=== PATIENT | male | born 2000 | race Caucasian/White ===

== ENCOUNTER 2020-06-04 12:37 | Outpatient (CLI) | payer OTHER, SELFPAY ==
--- NOTE | ~2020-06-04 | XR_ITS ---
EXAMINATION: XR shoulder RT min 2V DATE: 06/04/2020 12:49 INDICATION: Right shoulder pain. TECHNIQUE: 4 views of right shoulder were obtained. COMPARISON: None. FINDINGS: Bone alignment is normal. No fracture. Joint spaces are well maintained. IMPRESSION: 1. Normal right shoulder. Reviewed, dictated and finalized at location A. CULTURE EXTENSION SPECIALIST IMPRESSION: 1. Normal right shoulder.
== END 2020-06-04 12:38 | disposition home or self-care (01) ==
LOC: ANHIMG 12:38
PROVIDERS: PCP Nurse Practitioner Family; Visit Provider Nurse Practitioner Family
DX: M25.511 Pain in right shoulder (principal)
CPT/HCPCS: 73030

== ENCOUNTER 2020-11-06 09:45 | Emergency (ER) | payer OTHER, SELFPAY ==
[2020-11-06] VITALS (25 sets, daily range): BP systolic 129–160; BP diastolic 77–99; PULSE 73–103; RESP 11–23; TEMP 36.7; O2SAT 98–100
--- NOTE | ~2020-11-06 | XR_ITS ---
EXAMINATION: XR chest 2V 11/06/2020 10:15 INDICATION: Chest pressure PROCEDURE: 2 view chest COMPARISON: No prior studies for comparison. FINDINGS: The lungs are clear. The cardiomediastinal silhouette is within normal limits. There are no pleural effusions. There is no pneumothorax suspected. IMPRESSION: 1: NO ACUTE CARDIOPULMONARY DISEASE. Reviewed, dictated and finalized at location A.
--- NOTE | 2020-11-06 09:48 | ECG_ITS ---
Measurements Intervals [place] Rate: 102 P: 79 OH: 117 QRS: 79 QRSD: 95 T: 46 QT: 320 QTc: 418 Interpretive Statements SINUS TACHYCARDIA WITH SHORT [place] INTERVAL BORDERLINE ECG Electronically Signed On 11-06-2020 10:43:49 CDT by Matteo Murillo D.O.
[2020-11-06 10:20] LABS: Basophils Absolute Auto 0.1 K/mm3 (0.0-0.1); Basophils Percent Auto 1.2 % (0.2-1.2); Eosinophils Absolute Auto 0.2 K/mm3 (0-0.3); Eosinophils Percent Auto 3.5 % (0-4.4); Hematocrit 45.1 % (42.0-52.0); Hemoglobin 15.7 g/dL (14.0-18.0); Immature Granulocyte Absolute 0.01 K/mm3 (0.00-0.031); Immature Granulocyte Percent A 0.2 % (0-0.5); Lymphocytes Absolute Auto 2.88 K/mm3 (0.9-3.2); Lymphocytes Percent Auto 44.4 % (18.3-44.2); Mean Corpuscular HGB Conc 34.8 g/dl (32-36); Mean Corpuscular Hemoglobin 29.5 pg (26-34); Mean Corpuscular Volume 84.8 fl (80-100); Mean Platelet Volume 10.6 fl (7.4-10.4); Monocytes Absolute Auto 0.5 K/mm3 (0.1-0.6); Monocytes Percent Auto 7.6 % (2.6-8.5); Neutrophils Absolute Auto 2.8 K/mm3 (1.3-6.7); Neutrophils Percent Auto 43.1 % (45.5-73.1); Platelet Count Result 236 k/mm3 (150-375); Red Blood Count 5.32 M/mm3 (4.6-6.20); Red Cell Distribution Width 12.3 % (11.5-14.5); White Blood Count 6.5 K/mm3 (4.5-10.0)
[2020-11-06 10:29] LABS: Anion Gap 12 mmol/L (8-16); Blood Urea Nitrogen 16 mg/dL (9-20); Calcium 10.1 mg/dL (8.4-10.2); Carbon Dioxide 24 mmol/L (22-30); Chloride 104 mmol/L (98-107); Estimated CRCL calculation 95 ml/min; Estimated Glomerular Filt Rate > 60; Glucose 109 mg/dL (75-110); Sodium 140 mmol/L (137-145)
[2020-11-06 10:41] LABS: Troponin I < 0.012 ng/mL (0.000-0.034)
[2020-11-06 10:47] LABS: Prothrombin Time 13.7 Seconds (11.1-14.7)
[2020-11-06 10:48] LABS: Partial Thromboplastin Time 28.6 SECONDS (22.3-36.8)
--- NOTE | 2020-11-06 11:43 | ED.CHESTPAIN ---
HPI - Chest Pain General Chief Complaint: Chest Pain Stated Complaint: fast heart beat, chest pressure Time Seen by Provider: 11/06/20 11:15 Source: patient Mode of arrival: ambulatory Limitations: no limitations History of Present Illness HPI narrative: This is a 19 year old male that presents to the ER for intermittent chest pain x 2 days. Associated with some mild shortness of breath and feelings of heart palpitations. The pain is sharp and lasts only briefly. No known alleviating or exacerbating factors. Denies fever, cough, or lower extremity edema. Related Data Allergies Allergy/AdvReac Type Severity Reaction Status Date / Time ibuprofen Allergy Mild Verified 01/11/19 12:18 Penicillins Allergy Mild Verified 01/11/19 12:18 Review of Systems Review of Systems: Narrative: CONSTITUTIONAL: Denies fever CARDIOVASCULAR: Reports chest pain, palpitations. Denies edema. RESPIRATORY: Reports dyspnea. Denies cough PSYCHIATRIC: Reports anxiety All systems reviewed & are unremarkable except as noted in HPI and below PMFSH Past Medical History Medical History (Updated 11/06/20 @ 15:04 by Irma Sanches PA-C) History of anxiety Social History Social History (Updated 11/06/20 @ 11:46 by Irma Sanches PA-C) Smoking status: Never smoker Exam Narrative: Exam Narrative: GENERAL: Well-appearing, well-nourished, and in no acute distress. HEAD: Normocephalic, atraumatic. EYES: EOMI. ENT: Nares clear, no rhinorrhea or epistaxis. Mucous membranes moist. Oropharynx without tonsillar hypertrophy exudate or other lesions. Bilateral TMs pearly albarran non-bulging NECK: Supple. No adenopathy or masses. No carotid bruits or JVD CHEST: Clear to auscultation. No respiratory distress. No wheezes rales or rhonchi HEART: Regular rate and rhythm. No murmur heard. Normal peripheral pulses. EXTREMITIES: Normal range of motion. No edema. SKIN: Warm, dry, no rash. NEURO: No focal deficits. Alert and oriented x3. PSYCH: Normal mood and affect Course Vital Signs Vital signs: Vital Signs Temperature 98.1 F 11/06/20 09:48 Pulse Rate 103 H 11/06/20 09:48 Respiratory Rate 16 11/06/20 09:48 Blood Pressure 160/89 H 11/06/20 09:48 Pulse Oximetry 100 11/06/20 09:48 Temperature 98.1 F 11/06/20 09:48 Pulse Rate 80 11/06/20 14:16 Respiratory Rate 12 11/06/20 14:16 Blood Pressure 131/77 11/06/20 14:15 Pulse Oximetry 100 11/06/20 14:16 MDM - Chest Pain MDM Narrative Medical decision making narrative: Patient presents to the emergency department for intermittent chest pain and feeling of palpitations. He is afebrile and nontoxic-appearing. Mildly tachycardic upon arrival, this normalized without intervention. Patient is in sinus rhythm. No concerning ST changes on EKG. Monitored while in the ED with continued sinus rhythm throughout stay. CBC and metabolic panel without concerning findings. Baseline and 3-hour troponin are negative. Chest x-ray without acute findings. D-dimer is not elevated. Patient and family updated on case findings. His heart score is a 2. He is stable and felt appropriate for further outpatient evaluation. He is to follow-up with his primary care doctor. He was given warnings to return to the ER Lab Data Attestation: I reviewed the patient's lab results. Result diagrams: 11/06/20 10:11 11/06/20 10:11 Labs: Lab Results 11/06/20 11/06/20 11/06/20 Range/Units 10:11 10:11 10:11 WBC 6.5 (4.5-10.0) K/mm3 RBC 5.32 (4.6-6.20) M/mm3 Hgb 15.7 (14.0-18.0) g/dL Hct 45.1 (42.0-52.0) % MCV 84.8 (80-100) fl MCH 29.5 (26-34) pg MCHC 34.8 (32-36) g/dl RDW 12.3 (11.5-14.5) % Plt Count 236 (150-375) k/mm3 MPV 10.6 H (7.4-10.4) fl Immature Gran % (Auto) 0.2 (0-0.5) % Neut % (Auto) 43.1 L (45.5-73.1) % Lymph % (Auto) 44.4 H (18.3-44.2) % [place] % (Auto) 7.6 (2.6-8.5) % Eos % (Auto) 3.5 (0-
[2020-11-06 13:25] LABS: Troponin I < 0.012 ng/mL (0.000-0.034)
[2020-11-06 13:32] LABS: D Dimer 0.27 ug/mL (<0.48)
== END 2020-11-06 15:30 | disposition home or self-care (01) ==
PROVIDERS: Physician Assistant; Emergency Provider Family Medicine; PCP Nurse Practitioner Family
DX: R07.9 Chest pain, unspecified (principal); R00.0 Tachycardia, unspecified
CPT/HCPCS: 36415; 71046; 80048; 84484; 85025; 85380; 85610; 85730; 93005; 99284

== ENCOUNTER 2020-11-11 13:15 | Outpatient (CLI) | payer OTHER, SELFPAY ==
--- NOTE | ~2020-11-11 | XR_ITS ---
EXAMINATION: XR thoracic spine 3V DATE: 11/11/2020 13:27 INDICATION: Back pain. TECHNIQUE: 3 views of thoracic spine on 4 radiographs were obtained. COMPARISON: None. FINDINGS: There is 3 degrees dextrocurvature of upper thoracic spine. Vertebral body heights and inte rvertebral disc heights are normal. IMPRESSION: 1. No etiology for the patient's symptoms. Reviewed, dictated and finalized at location A.
--- NOTE | ~2020-11-11 | XR_ITS ---
EXAMINATION: XR lumbar spine 2-3V DATE: 11/11/2020 13:27 INDICATION: Back pain. TECHNIQUE: 3 views of lumbar spine were obtained. COMPARISON: None. FINDINGS: Bone alignment is normal. Vertebral body heights and intervertebral disc heights are normal . The facet joints are normal. IMPRESSION: 1. Normal lumbar spine. Reviewed, dictated and finalized at location A. IMPRESSION: 1. Normal lumbar spine.
--- NOTE | ~2020-11-11 | XR_ITS ---
EXAMINATION: XR abdomen obstructive series DATE: 11/11/2020 13:27 INDICATION: Abdominal pain. TECHNIQUE: Upright and supine views of the abdomen on 3 radiographs were obtained. COMPARISON: None. FINDINGS: There are no dilated loops of bowel. There is a small volume of stool in the colon. No free intraperitoneal gas. IMPRESSION: 1. Normal bowel gas pattern. Reviewed, dictated and finalized at location A.
== END 2020-11-11 13:16 | disposition home or self-care (01) ==
LOC: ANHIMG 13:16
PROVIDERS: PCP Family Medicine; Visit Provider Family Medicine
DX: M54.6 Pain in thoracic spine (principal); R10.9 Unspecified abdominal pain
CPT/HCPCS: 72072; 72100; 74019

== ENCOUNTER 2020-12-19 14:13 | Emergency (ER) | payer OTHER, SELFPAY ==
[2020-12-19 14:22] VITALS: BP 133/68; PULSE 85; RESP 18; TEMP 37.2; O2SAT 100
--- NOTE | 2020-12-19 14:29 | ED.GENADULT ---
HPI - General Adult General Chief complaint: Upper Respiratory Infection Stated complaint: Cough,Sore throat Source: patient Mode of arrival: ambulatory Limitations: no limitations History of Present Illness HPI narrative: 20 y/o male. PMHx: Negative. Presents to [facility] today with acute complaints of nasal congestion, intermittent cough, as well as sore throat for the past 72 hours. He is a non-smoker. Denies fever, chills, myalgia. No FOFANA, otalgia. No dysphagia or involuntary drooling. No chest pain, palpitations, dyspnea, edema. No abdominal pain, N/V. Pt denies known ill contacts, but states to work for a [employer] around large employee groups frequently. He is without additional acute complaints of illness upon e . Related Data Home Medications Medication Instructions Recorded Confirmed buspirone 10 mg PO BID 12/19/20 12/19/20 cyclobenzaprine 10 mg PO HS PRN 12/19/20 12/19/20 Allergies Allergy/AdvReac Type Severity Reaction Status Date / Time ibuprofen Allergy Mild Rash Verified 12/19/20 14:43 Penicillins Allergy Mild Rash Verified 12/19/20 14:43 Review of Systems Review of Systems: CONSTITUTIONAL: Denies fever, chills, sweats. EYES: Denies visual changes, redness, discharge. ENT: Positive rhinorrhea, congestion, sore throat. No otalgia. CARDIOVASCULAR: Denies chest pain, palpitations, edema. RESPIRATORY: Denies dyspnea, wheezing. Positive non-productive cough GASTROINTESTINAL: Denies abdominal pain, nausea, vomiting, diarrhea. GENITOURINARY: Denies dysuria, hematuria, abnormal discharge SKIN: Denies rash or itching. MUSCULOSKELETAL: Denies acute back pain, joint pain, or myalgia. NEUROLOGIC: Denies numbness, or focal weakness. PSYCHIATRIC: Denies anxiety or depression. All systems reviewed & are unremarkable except as noted in HPI and below PMFSH Past Medical History Medical History History of anxiety Social History Social History Smoking status: Never smoker Exam Narrative: GENERAL: This is a well-nourished, well-developed patient, in no apparent distress. HEAD: normocephalic, atraumatic. EYES: PERRL. Sclera clear/white. EARS: External ears normal, auditory canals clear and without drainage, TMs normal without perforation. NOSE: External nose normal. Positive Rhinorrhea, no obstruction. THROAT: Mucous membranes moist. Posterior Pharynx is erythematous, w/o obvious exudative changes. NECK: Neck supple, non-tender without lymphadenopathy, masses or thyromegaly. CARDIOVASCULAR: Regular rate and rhythm without murmurs, gallops, or rubs. RESPIRATORY: Clear to auscultation. Breath sounds equal bilaterally. No wheezes, rales, or rhonchi. GASTROINTESTINAL: Abdomen soft, non-tender, nondistended. Bowel sounds are active. No hepato-splenomegaly, or palpable masses. No guarding. SKIN: warm, intact with no suspicious lesions or rash, good texture and turgor. NEURO: No focal neurological deficits. Course Course Emergency Course: -20 y/o male. PMHx non-contributory. -Upper airway congestion, cough, sore throat X 3 days. -Plan for Rapid Strep & Covid 19 testing. Vital Signs Vital signs: Vital Signs Temperature 37.2 C 12/19/20 14:22 Pulse Rate 85 12/19/20 14:22 Respiratory Rate 18 12/19/20 14:22 Blood Pressure 133/68 12/19/20 14:22 Pulse Oximetry 100 12/19/20 14:22 Temperature 37.2 C 12/19/20 14:22 Pulse Rate 85 12/19/20 14:22 Respiratory Rate 18 12/19/20 14:22 Blood Pressure 133/68 12/19/20 14:22 Pulse Oximetry 100 12/19/20 14:22 Medical Decision Making [facility] Narrative Medical decision making narrative: -Afebrile, non-tachycardic, appears non-toxic. -No acute airway swelling or distress. -Rapid Influenza & Covid 19 testing yields negative results. -Suspect other Viral URI. -Resume home OTC remedies as
== END 2020-12-19 15:01 | disposition home or self-care (01) ==
PROVIDERS: Emergency Provider Nurse Practitioner Adult Health; PCP Family Medicine
DX: B34.9 Viral infection, unspecified (principal); J06.9 Acute upper respiratory infection, unspecified; Z20.822 Contact with and (suspected) exposure to COVID-19; F41.9 Anxiety disorder, unspecified
CPT/HCPCS: 87081; 87426; 87880; 99213; C9803; G0463